=== PATIENT | female | born 1980 | race Caucasian/White ===

== ENCOUNTER 2017-10-17 16:40 | Emergency (ER) | payer SELFPAY ==
[~2017-10-17] VITALS: Ht 172.7 cm; Wt 136.5 kg
[2017-10-17 20:13] LABS: BASOPHIL % 0.5 % (0-2); PLATELET COUNT 382 x10^3mcL (130-400); RED CELL DISTRIBUTION WIDTH 15.3 % (11.5-14.5)
[2017-10-17 20:30] LABS: CALCIUM 8.7 mg/dL (8.5-10.1); CARBON DIOXIDE 24.2 mmol/L (21-32); CHLORIDE SERUM 106 mmol/L (98-107); CREATININE SERUM 0.8 mg/dL (0.6-1.0); GFR1 > 60 mL/min; GLUCOSE SERUM 99 mg/dL (74-106); POTASSIUM SERUM 3.6 mmol/L (3.5-5.1); SODIUM SERUM 142 mmol/L (136-145)
[2017-10-17 20:35] LABS: ALBUMIN 3.8 g/dL (3.4-5.0); ALKALINE PHOSPHATASE 84 U/L (46-116); ALT/SGPT 16 U/L (14-59); AST/SGOT 13 U/L (15-37); BILIRUBIN TOTAL 0.23 mg/dL (0.20-1.00)
[2017-10-17 22:04] VITALS: BP 111/80
== END 2017-10-17 22:04 | disposition home or self-care (01) ==
LOC: ED 16:40
PROVIDERS: Emergency Medicine
DX: R42 Dizziness and giddiness (principal); N39.0 Urinary tract infection, site not specified
CPT/HCPCS: 36415

== ENCOUNTER 2018-04-20 15:00 | Emergency (ER) | payer MEDICAID ==
[~2018-04-20] VITALS: Ht 172.7 cm; Wt 141.3 kg
[2018-04-20 17:25] VITALS: BP 147/89
== END 2018-04-20 17:25 | disposition home or self-care (01) ==
LOC: ED 15:00
DX: S00.83XA Contusion of other part of head, initial encounter (principal); Z88.6 Allergy status to analgesic agent; Y04.2XXA Assault by strike against or bumped into by another person, initial encounter; Y93.89 Activity, other specified; Y92.89 Other specified places as the place of occurrence of the external cause; Y99.8 Other external cause status